=== PATIENT | male | born 1975 | race Caucasian/White ===

== ENCOUNTER 2023-05-16 11:56 | Day surgery (SDC) | payer OTHER ==
--- NOTE | 2023-05-16 08:27 | P.HPIHPCON ---
History of Present Illness H&P Date: 05/16/23 Chief Complaint: Left ureteral stone This is a 48-year-old male with history of a 4 mm left-sided distal ureteral stone, he has failed medical expulsive therapy, continues to have flank pain and obstructive urinary symptoms secondary to his stone discussed with him given his persistent symptoms the option of a left-sided ureteroscopy with holmium laser. Discussed the risk of surgery which includes but not limited to bleeding, infection, injury to the ureter. Risk of anesthesia was also discussed. He understood all the risk and agreed to proceed Consent for Procedure: I have explained the operation/procedure to the patient, including the risks, benefits, side effects, alternative therapies (including not receiving the proposed treatment or service), the likelihood of the patient achieving his/her goals, and potential recuperation problems for the procedure/sedation/analgesia, as well as any blood products, if indicated. I also explained to the patient the risks, benefits and side effects of the alternatives, as well as the risks re lated to not receiving the proposed procedure, care, treatment, or services. Past Medical History Past Medical History: GERD/Reflux Additional Past Medical History / Comment(s): HX GOUT, HEART MURMUR, HX OF FAREED RUPTURED EARDRUMS, FREQUENT EAR INFECTIONS, kidney stones, radiculopathy History of Any Multi-Drug Resistant Organisms: None Reported Past Surgical History: Hernia Repair, Orthopedic Surgery Additional Past Surgical History / Comment(s): COLONOSCOPY, WISDOM TEETH, bilat. inguinal hernia repair, C5-C6 Fusion - limited neck movement Past Anesthesia/Blood Transfusion Reactions: Previous Problems w/ Anesthesia Additional Past Anesthesia/Blood Transfusion Reaction / Comment(s): States spastic coughing after wisdom teeth extraction many years ago, no problems w/ anesthesia in more recent years. States he heard anesthesia say, " Oh my, he's reaching for the tube." during one of his anesthetics. Smoking Status: Never smoker - Past Family History Mother Family Medical History: Coronary Artery Disease (CAD) Medications and Allergies Home Medications Medication Instructions Recorded Confirmed Type Calcium Carbonate [Tums] 500 mg PO TID PRN 05/10/23 05/10/23 History Febuxostat 40 mg PO DAILY 05/10/23 05/10/23 History HYDROcodone/APAP 7.5-325MG [[place] 1 tab PO Q8H PRN 05/10/23 05/10/23 History 7.5-325] Ketorolac [Toradol] 10 mg PO TID PRN 05/10/23 05/10/23 History Allergies Allergy/AdvReac Type Severity Reaction Status Date / Time No Known Allergies Allergy Verified 05/10/23 11:44 Surgical - Exam - General no distress, no pain - Eyes normal ocular movement, no pale - ENT normal nares, normal mucosa - Respiratory normal expansion, normal respiratory effort - Abdomen Abdomen: soft, non tender - Psychiatric oriented to time, oriented to person, oriented to place Assessment and Plan Assessment: OR for left-sided ureteroscopy, holmium laser lithotripsy, stone basketing and stent insertion
[~2023-05-16 11:56] MED LIST: HYDROmorphone 0.5 MG/0.5 ML SYRINGE IVP PRN; LIDOCAINE 1% (10MG/ML) FOR IV START INTRADERMA PRN; METOCLOPRAMIDE 5 MG/ML 2 ML VIAL IVP PRN
--- NOTE | 2023-05-16 12:46 | XR ---
EXAMINATION TYPE: XR KUB DATE OF EXAM: 05/16/2023 12:07 PM CLINICAL INDICATION:Male, 48 years old with history of kidney stone; COMPARISON: None. TECHNIQUE: One radiographic view of the abdomen was obtained. FINDINGS: The bowel gas pattern is nonspecific without dilated loops of small or large bowel. There i s no evidence for organomegaly or pneumoperitoneum. The osseous structures are intact. No abnormal calcifications are present. Fecal material and gas are demonstrated throughout the colon and rectum. IMPRESSION: Nonspecific bowel gas pattern without radiographic evidence for acute process.
[2023-05-16] MEDS: LACTATED RINGERS 1,000 ML IV SCH (13:15)
[2023-05-16] MEDS: DEXAMETHASONE SOD PHOSPHATE 4 MG/ML 1 ML VIAL IV ONE (13:24)
[2023-05-16] MEDS: ONDANSETRON 4 MG/2 ML VIAL IVP ONE (13:25)
[2023-05-16 13:37] LABS: Basophils # (A) 0.1 k/uL (0-0.2); Basophils % (A) 1 %; Eosinophils # (A) 0.1 k/uL (0-0.7); Eosinophils % (A) 1 %; HCT 43.5 % (39.0-53.0); Lymphocytes # (A) 1.8 k/uL (1.0-4.8); Lymphocytes % (A) 21 %; MCH 30.5 pg (25.0-35.0); MCHC 34.5 g/dL (31.0-37.0); MCV 88.2 fL (80.0-100.0); Monocytes # (A) 0.5 k/uL (0-1.0); Monocytes % (A) 6 %; Neutrophils # (A) 6.1 k/uL (1.3-7.7); Neutrophils % (A) 70 %; Platelet Count 299 k/uL (150-450); RBC 4.93 m/uL (4.30-5.90); RDW 12.6 % (11.5-15.5); WBC 8.7 k/uL (3.8-10.6)
[2023-05-16 13:55] LABS: African American GFR (CKD) >90 (>60 ml/min/1.73 sqM); Anion Gap 9 mmol/L; Blood Urea Nitrogen 14 mg/dL (9-20); Calcium 9.8 mg/dL (8.4-10.2); Carbon Dioxide 26 mmol/L (22-30); Chloride 107 mmol/L (98-107); Glucose 91 mg/dL (74-99); Non-African American GFR(CKD) >90 (>60 ml/min/1.73 sqM); Potassium 4.2 mmol/L (3.5-5.1); Sodium 142 mmol/L (137-145)
[2023-05-16] MEDS ORDERED: MIDAZOLAM 2 MG/2 ML VIAL ONE (14:43)
[2023-05-16] MEDS ORDERED: LIDOCAINE 1% INJ 10MG/ML (20 ML MDV) ONE (14:43)
[2023-05-16] MEDS ORDERED: HYDROmorphone (PF) 1 MG/ML ONE (14:43)
[2023-05-16] MEDS ORDERED: fentaNYL (PF) 50 MCG/ML 2 ML AMP ONE (14:43)
[2023-05-16] MEDS ORDERED: PROPOFOL 10 MG/ML 20 ML VIAL IV ONE (14:43)
[2023-05-16] MEDS ORDERED: ePHEDrine 50 MG/ML 1 ML VIAL ONE (14:43)
[2023-05-16] MEDS: IOPAMIDOL-370 100ML BTL MISCELLANE ONE (15:13)
--- NOTE | 2023-05-16 15:41 | P.OP ---
Date of Procedure: 05/16/23 Preoperative Diagnosis: Left ureteral stone Postoperative Diagnosis: Bladder stone, urethral stricture Procedure(s) Performed: Cystoscopy, urethral dilation, cystolitholapaxy(<2.5cm), left retrograde pyelogram and ureteroscopy Implants: None Anesthesia: JOHANA Surgeon: Celio Mccall Estimated Blood Loss (ml): 5 Pathology: other (Bladder stone) Condition: stable Disposition: PACU Indications for Procedure: This is a 48-year-old male with history of a 4 mm left-sided distal ureteral stone, he has failed medical expulsive therapy, continues to have flank pain and obstructive urinary symptoms secondary to his stone discussed with him given his persistent symptoms the option of a left-sided ureteroscopy with holmium laser. Discussed the risk of surgery which includes but not limited to bleeding, infection, injury to the ureter. Risk of anesthesia was also discussed. He understood all the risk and agreed to proceed Operative Findings: Approximately a 10 Egyptian bulbar urethral stricture that measures less than half a centimeter in length, stone stuck proximal to the stricture. Normal left ureteroscopy and retrograde pyelogram Description of Procedure: Patient was brought to the operating room, general anesthesia was induced. He was prepped and draped in sterile fashion and placed in dorsolithotomy position. Cystoscopy fitted with a 21 Egyptian sheath was inserted per urethra. At this time a 10 Egyptian bulbar urethral stricture was encountered, the length of the stricture was approximately half a centimeter. Stone was seen proximal to the stricture. Next a sensor wire was advanced through the cystoscope and into the bladder. Next the urethral stricture was dilated using the S shaped dilators starting with a 10 Egyptian dilator and going all the way up to 20 Fr. At this point a cystoscopy fitted with a 17 Egyptian sheath was inserted per urethra and advanced past the stricture, patient's prostate was small and nonobstructive, cystoscopy was performed which showed the stone is within the bladder, I attempted to irrigate the stone out but it did not fit through the sheath. At this time using the holmium laser the stone was fragmented into multiple pieces, and the pieces were irrigated out, repeat cystoscopy showed no sizable fragments or injury to the bladder. At this time attention was then carried to the left ureteral orifice which was intubated with an open-ended catheter, retrograde pyelogram was performed which showed no evidence of hydronephrosis, there was a questionable narrowing versus a filling defect at the distal ureter. Given this finding decision was made to proceed with a ureteroscopy, at this point a semirigid ureteroscope was inserted per urethra and advanced up the left ureteral orifice, ureteroscopy was performed which showed no evidence of stones or abnormality along the course of the ureter, the ureteroscope was advanced all the way up to the proximal ureter. Pullback ureteroscopy was performed showed no injury to the ureter or any ureteral stones. At this time a 16 Egyptian Dubon was placed with a return of clear urine. Patient tolerated procedure well was taken to recovery in stable condition
[2023-05-16 15:44] VITALS: TEMP 96.9
--- NOTE | 2023-05-16 15:53 | FL ---
EXAMINATION TYPE: FL urography retrograde DATE OF EXAM: 05/16/2023 FLUOROSCOPY cysto left side and ureteral dilation. FL time 1 min 3.9 seconds. DAP [id number] mgym2. 2 images scanned into PACS. Dr Mccall.
[2023-05-16 16:44] VITALS: RESP 20
[2023-05-16] MEDS ORDERED: KETOROLAC 15 MG/ML 1 ML VIAL ONE (16:55)
[2023-05-16] MEDS: KETOROLAC 15 MG/ML 1 ML VIAL IVP ONE (16:57)
[2023-05-16 17:12] VITALS: BP 121/72; PULSE 94
== END 2023-05-16 17:36 | disposition home or self-care (01) ==
LOC: OR 11:56
PROVIDERS: ATTEND Urology
DX: N20.1 Calculus of ureter (principal); N35.919 Unspecified urethral stricture, male, unspecified site; K21.9 Gastro-esophageal reflux disease without esophagitis; Z82.49 Family history of ischemic heart disease and other diseases of the circulatory system; Z79.899 Other long term (current) drug therapy; Z98.890 Other specified postprocedural states
CPT/HCPCS: 80048; 85025; 82365; 74420; 74018; 52353; C1758; C1769 ×2; J2250; J1100; J0690; J2405; J2001; J3010; J1170; J1885; J2704; Q9967